=== PATIENT | female | born 1980 | race Caucasian/White ===

== ENCOUNTER 2017-08-25 23:39 | Outpatient (CLI) | payer OTHER ==
[2017-08-26 02:51] LABS: ADD MAN DIFF? NO
[2017-08-26 02:58] LABS: BASOPHILS % 0.4 % (0.0-2.0); EOSINOPHILS # 0.2 10^3/ul (0.0-0.5); EOSINOPHILS % 1.6 % (0.0-7.0); HEMATOCRIT 32.8 % (37.0-47.0); LYMPHOCYTES # 2.5 10^3/ul (0.8-2.9); LYMPHOCYTES % 22.2 % (15.0-51.0); MEAN CORPUSCULAR HGB CONC 33.5 g/dl (32.0-37.0); MEAN CORPUSCULAR VOLUME 92.4 fl (82.0-101.0); MEAN PLATELET VOLUME 8.7 fl (7.4-10.4); MONOCYTE # 0.8 10^3/ul (0.3-0.9); MONOCYTES % 7.2 % (0.0-11.0); NEUTROPHIL # 7.8 10^3/ul (1.6-7.5); PLATELET COUNT 313 10^3/UL (140-415); RED BLOOD COUNT 3.55 10^6/ul (4.20-5.40); RED CELL DISTRIBUTION WIDTH 13.2 % (11.5-14.5)
[2017-08-26 02:58] LABS: WHITE BLOOD COUNT 11.4 10^3/ul (4.8-10.8)
[2017-08-26 04:49] LABS: AMPHETAMINE/METHAMPHETAMINE Negative (NEGATIVE); BARBITURATES Negative (NEGATIVE); BENZODIAZEPINES Negative (NEGATIVE); CANNABINOIDS Negative (NEGATIVE)
[2017-08-26 04:50] LABS: COCAINE Negative (NEGATIVE); OPIATES Negative (NEGATIVE)
[2017-08-26 05:47] LABS: ADD UMIC YES; UR ASCORBIC ACID NEGATIVE (NEGATIVE); UR BILIRUBIN (Dip) NEGATIVE (NEGATIVE); UR BLOOD (Dip) 2+ mg/dL (NEGATIVE); UR CALCIUM OXALATE CRYSTAL FEW /HPF (NONE SEEN); UR CLARITY SLIGHTLY CLOUDY (CLEAR); UR COLOR YELLOW (YELLOW); UR GLUCOSE (Dip) NEGATIVE (NEGATIVE); UR KETONES (Dip) NEGATIVE (NEGATIVE); UR LEUKOCYTE ESTERASE (Dip) NEGATIVE Leu/ul (NEGATIVE); UR MUCUS FEW /HPF (NONE SEEN); UR NITRITE (Dip) NEGATIVE (NEGATIVE); UR RBC 1 /HPF (0-5); UR SPECIFIC GRAVITY (Dip) 1.025 (1.003-1.030); UR SQUAMOUS EPITHELIAL CELL FEW /HPF (FEW); UR TOTAL PROTEIN (Dip) NEGATIVE (NEGATIVE); UR UROBILINOGEN (Dip) NEGATIVE (NEGATIVE); UR WBC 3 /HPF (0-5)
== END 2017-08-26 06:00 | disposition home or self-care (01) ==
LOC: OBT 23:39 → L-D 23:59 → OBT 08-26 06:00
DX: O46.8X2 Other antepartum hemorrhage, second trimester (principal); Z3A.28 28 weeks gestation of pregnancy
CPT/HCPCS: 76818; 80307; 81001; 85025; 86850; 86900; 86901; 87086

== ENCOUNTER 2017-11-09 07:39 | Inpatient (IN) | payer OTHER ==
[2017-11-09 08:30] LABS: ADD MAN DIFF? NO
[2017-11-09] MEDS ORDERED: CARBOPROST 250 MCG INJ IM ×2 (08:30→10:30)
[2017-11-09] MEDS ORDERED: METHYLERGONOVINE 0.2 MG INJ IM ×2 (08:30→10:30)
[2017-11-09] MEDS ORDERED: MISOPROSTOL 200 MCG TAB PR ×2 (08:30→10:30)
[2017-11-09] MEDS ORDERED: CEFAZOLIN 2 GM/50 ML (PMX) 50 ML IV ×2 (08:30→10:30)
[2017-11-09] MEDS ORDERED: OXYTOCIN 30 UNITS/LR 500 ML IV (08:30)
[2017-11-09 08:32] LABS: BASOPHILS % 0.5 % (0.0-2.0); EOSINOPHILS # 0.1 10^3/ul (0.0-0.5); EOSINOPHILS % 1.3 % (0.0-7.0); HEMATOCRIT 36.6 % (37.0-47.0); HEMOGLOBIN 12.1 g/dl (12.0-16.0); LYMPHOCYTES # 2.3 10^3/ul (0.8-2.9); LYMPHOCYTES % 26.6 % (15.0-51.0); MEAN CORPUSCULAR HEMOGLOBIN 30.3 pg (29.0-33.0); MEAN CORPUSCULAR HGB CONC 33.1 g/dl (32.0-37.0); MEAN CORPUSCULAR VOLUME 91.7 fl (82.0-101.0); MEAN PLATELET VOLUME 9.2 fl (7.4-10.4); MONOCYTE # 0.7 10^3/ul (0.3-0.9); MONOCYTES % 7.8 % (0.0-11.0); NEUTROPHIL # 5.4 10^3/ul (1.6-7.5); NEUTROPHILS % 63.4 % (39.0-77.0); PLATELET COUNT 267 10^3/UL (140-415); RED BLOOD COUNT 3.99 10^6/ul (4.20-5.40); RED CELL DISTRIBUTION WIDTH 13.9 % (11.5-14.5)
[2017-11-09 08:32] LABS: WHITE BLOOD COUNT 8.6 10^3/ul (4.8-10.8)
[2017-11-09] MEDS: LACTATED RINGER'S 1,000 ML IV ×2 (08:36→08:53)
[2017-11-09] MEDS: CITRIC ACID/SODIUM CITRATE 15 ML CUP PO (08:52)
[2017-11-09] MEDS: ONDANSETRON 4 MG INJ IV (08:53)
[2017-11-09 08:58] LABS: INR 0.93; PROTIME 12.6 Sec (11.9-14.9)
[2017-11-09 08:59] LABS: PARTIAL THROMBOPLASTIN TIME 23.6 Sec (25.0-35.0)
[2017-11-09] MEDS ORDERED: KETOROLAC 30 MG INJ (09:19)
[2017-11-09] MEDS ORDERED: BUPIVACAINE 0.75%/DEXT (SPINAL) 2 ML INJ (09:19)
[2017-11-09] MEDS ORDERED: OXYTOCIN 10 UNIT INJ (09:19)
[2017-11-09] MEDS ORDERED: DEXAMETHASONE 4 MG/ML 1 ML INJ (09:19)
[2017-11-09] MEDS ORDERED: morphine SULFATE/PF (10 MG/10 ML) INJ (09:19)
[2017-11-09] MEDS ORDERED: METOCLOPRAMIDE 10 MG INJ (09:19)
[2017-11-09] MEDS ORDERED: PHENYLephrine (100 MCG/ML) 5ML SYG ×2 (09:19→09:56)
[2017-11-09] MEDS ORDERED: MEPERIDINE 100 MG INJ (09:44)
[2017-11-09] MEDS ORDERED: DIPHENHYDRAMINE 50 MG INJ IV (10:30)
[2017-11-09] MEDS ORDERED: morphine 2 MG INJ IV ×2 (10:30)
[2017-11-09] MEDS: OXYTOCIN 30 UNITS/LR 500 ML IV ×3 (10:30→21:48)
[2017-11-09] MEDS ORDERED: NALBUPHINE HCL (10 MG/1 ML) INJ IV (10:30)
[2017-11-09] MEDS ORDERED: ONDANSETRON 4 MG INJ IV (10:30)
[2017-11-09] MEDS ORDERED: NALOXONE (0.4 MG/ML) INJ IV (10:30)
[2017-11-09] MEDS ORDERED: HYDROmorphONE 0.5 MG/0.5 ML SYG IV ×2 (10:30)
[2017-11-09] MEDS ORDERED: OXYCODONE/ACETAMINOPHEN (5/325) TAB PO (10:30)
[2017-11-09] MEDS ORDERED: HYDROCODONE/APAP (5/325) TAB PO (10:30)
[2017-11-09] MEDS ORDERED: HETASTARCH 6% NACL 500 ML (11:47)
[2017-11-09] MEDS ORDERED: IBUPROFEN 600 MG TAB PO (12:00)
[2017-11-09] MEDS: HETASTARCH 6% NACL 500 ML BAG IV* (12:05)
[2017-11-09 12:28] LABS: HEPATITIS B SURFACE ANTIGEN NEGATIVE (NEGATIVE)
[2017-11-09 15:11] LABS: RAPID PLASMA REAGIN NONREACTIVE (NR)
[2017-11-09] MEDS: CEFAZOLIN 2 GM/50 ML (PMX) 50 ML IVPB (16:15)
[2017-11-09] MEDS: SENNA/DOCUSATE NA (8.6MG/50MG) TAB PO (21:00)
[2017-11-10] MEDS: CEFAZOLIN 2 GM/50 ML (PMX) 50 ML IVPB ×2 (01:04→09:11)
[2017-11-10] MEDS: LACTATED RINGER'S 1,000 ML IV* (04:13)
[2017-11-10] MEDS: KETOROLAC 30 MG INJ IV (06:10)
[2017-11-10] MEDS: SENNA/DOCUSATE NA (8.6MG/50MG) TAB PO ×2 (09:11→21:07)
[2017-11-10 10:08] LABS: ADD MAN DIFF? NO
[2017-11-10 10:16] LABS: BASOPHILS % 0.3 % (0.0-2.0); EOSINOPHILS # 0.1 10^3/ul (0.0-0.5); HEMATOCRIT 28.7 % (37.0-47.0); HEMOGLOBIN 9.7 g/dl (12.0-16.0); LYMPHOCYTES # 2.2 10^3/ul (0.8-2.9); LYMPHOCYTES % 20.2 % (15.0-51.0); MEAN CORPUSCULAR HEMOGLOBIN 31.3 pg (29.0-33.0); MEAN CORPUSCULAR HGB CONC 33.8 g/dl (32.0-37.0); MEAN CORPUSCULAR VOLUME 92.6 fl (82.0-101.0); MEAN PLATELET VOLUME 9.1 fl (7.4-10.4); MONOCYTE # 0.8 10^3/ul (0.3-0.9); MONOCYTES % 7.8 % (0.0-11.0); NEUTROPHIL # 7.6 10^3/ul (1.6-7.5); NEUTROPHILS % 70.2 % (39.0-77.0); PLATELET COUNT 215 10^3/UL (140-415); RED CELL DISTRIBUTION WIDTH 13.9 % (11.5-14.5)
[2017-11-10 10:16] LABS: WHITE BLOOD COUNT 10.8 10^3/ul (4.8-10.8)
[2017-11-10] MEDS: IBUPROFEN 600 MG TAB PO ×3 (11:52→23:24)
[2017-11-10] MEDS: FERROUS SULFATE (EC) 325 MG TAB PO (21:07)
[2017-11-10] MEDS: ACETAMINOPHEN 500 MG TAB PO (21:08)
[2017-11-11] MEDS: IBUPROFEN 600 MG TAB PO ×3 (06:43→17:38)
[2017-11-11] MEDS: SENNA/DOCUSATE NA (8.6MG/50MG) TAB PO ×2 (09:12→21:59)
[2017-11-11] MEDS: FERROUS SULFATE (EC) 325 MG TAB PO ×2 (09:12→21:59)
[2017-11-11] MEDS: LANOLIN 7 GM TUBE TOP (10:37)
[2017-11-11] MEDS: OXYCODONE/ACETAMINOPHEN (5/325) TAB PO (15:16)
[2017-11-12] MEDS: IBUPROFEN 600 MG TAB PO ×3 (00:22→11:28)
[2017-11-12] MEDS: FERROUS SULFATE (EC) 325 MG TAB PO (08:29)
[2017-11-12] MEDS: SENNA/DOCUSATE NA (8.6MG/50MG) TAB PO (08:29)
[2017-11-12] MEDS: OXYCODONE/ACETAMINOPHEN (5/325) TAB PO (08:30)
[2017-11-12] MEDS: LANOLIN 7 GM TUBE TOP (11:28)
== END 2017-11-12 15:15 | disposition home or self-care (01) | DRG 766 ==
LOC: OBT 07:39 → L-D 07:44 → OBT 08:23 → L-D 08:27 → PP1 14:10
PROVIDERS: Obstetrics & Gynecology
PROC: 10D00Z1 Extraction of Products of Conception, Low, Open Approach (ICD-10-PCS; principal; 2017-11-09 09:45)
PROC: 4A1HXCZ Monitoring of Products of Conception, Cardiac Rate, External Approach (ICD-10-PCS; 2017-11-09 09:45)
DX: O34.211 Maternal care for low transverse scar from previous cesarean delivery (principal); Z3A.38 38 weeks gestation of pregnancy; Z37.0 Single live birth
CPT/HCPCS: 85025; 85610; 85730; 86592; 86850; 86900; 86901; 87340; 99464

== ENCOUNTER 2018-12-30 09:45 | Inpatient (IN) | payer OTHER ==
[2018-12-30 10:47] LABS: ADD MAN DIFF? NO
[2018-12-30 10:51] LABS: WHITE BLOOD COUNT 11.8 10^3/ul (4.8-10.8)
[2018-12-30 10:51] LABS: BASOPHILS % 0.3 % (0.0-2.0); EOSINOPHILS # 0.2 10^3/ul (0.0-0.5); EOSINOPHILS % 1.3 % (0.0-7.0); HEMATOCRIT 35.9 % (37.0-47.0); HEMOGLOBIN 11.9 g/dl (12.0-16.0); LYMPHOCYTES # 2.1 10^3/ul (0.8-2.9); LYMPHOCYTES % 17.6 % (15.0-51.0); MEAN CORPUSCULAR HGB CONC 33.1 g/dl (32.0-37.0); MEAN CORPUSCULAR VOLUME 93.5 fl (82.0-101.0); MONOCYTE # 0.8 10^3/ul (0.3-0.9); MONOCYTES % 6.3 % (0.0-11.0); NEUTROPHIL # 8.8 10^3/ul (1.6-7.5); RED BLOOD COUNT 3.84 10^6/ul (4.20-5.40); RED CELL DISTRIBUTION WIDTH 13.5 % (11.5-14.5)
[2018-12-30 10:53] LABS: POSITIVE DIFF @See below
[2018-12-30 11:52] LABS: ANISOCYTOSIS 1+ (0-0); BAND NEUTROPHILS #M 1.1 10^3/ul (0.0-0.6); BAND NEUTROPHILS % (M) 10 % (0-4); LYMPHOCYTES #M 1.8 10^3/ul (0.8-2.9); LYMPHOCYTES % (M) 16 % (15-51); MONOCYTE #M 0.8 10^3/ul (0.3-0.9); MONOCYTES % (M) 7 % (0-11); PLATELET ESTIMATE NORMAL; PLATELET MORPHOLOGY COMMENT @See below; POIKILOCYTOSIS 1+ (0-0); REACTIVE LYMPHOCYTES #M 0.3 10^3/ul (0.0-0.0); REACTIVE LYMPHOCYTES% (M) 3 % (0-0); SEG NEUT #M 7.7 10^3/ul (1.6-7.5); SEGMENTED NEUTROPHILS (M) % 64 % (39-77); SMUDGE%M 15 % (0-0)
[2018-12-30 11:53] LABS: MEAN PLATELET VOLUME 9.5 fl (7.4-10.4); PLATELET COUNT 311 10^3/UL (140-415)
[2018-12-30 13:04] LABS: ADD UMIC NO; UR ASCORBIC ACID NEGATIVE (NEGATIVE); UR BACTERIA FEW /HPF (NONE SEEN); UR BILIRUBIN (Dip) NEGATIVE (NEGATIVE); UR BLOOD (Dip) NEGATIVE (NEGATIVE); UR CLARITY SLIGHTLY CLOUDY (CLEAR); UR COLOR YELLOW (YELLOW); UR GLUCOSE (Dip) NEGATIVE (NEGATIVE); UR KETONES (Dip) NEGATIVE (NEGATIVE); UR LEUKOCYTE ESTERASE (Dip) NEGATIVE Leu/ul (NEGATIVE); UR MUCUS FEW /HPF (NONE SEEN); UR NITRITE (Dip) NEGATIVE (NEGATIVE); UR RBC 0 /HPF (0-5); UR SPECIFIC GRAVITY (Dip) 1.016 (1.003-1.030); UR SQUAMOUS EPITHELIAL CELL FEW /HPF (FEW); UR TOTAL PROTEIN (Dip) NEGATIVE (NEGATIVE); UR UROBILINOGEN (Dip) 2+ mg/dL (NEGATIVE); UR WBC 2 /HPF (0-5)
[2018-12-30] MEDS: LACTATED RINGER'S 1,000 ML IV ×2 (17:15→20:57)
[2018-12-30 17:49] LABS: ADD MAN DIFF? NO
[2018-12-30 17:50] LABS: BASOPHILS % 0.4 % (0.0-2.0); EOSINOPHILS # 0.1 10^3/ul (0.0-0.5); EOSINOPHILS % 1.3 % (0.0-7.0); HEMATOCRIT 34.8 % (37.0-47.0); HEMOGLOBIN 11.8 g/dl (12.0-16.0); LYMPHOCYTES # 2.2 10^3/ul (0.8-2.9); LYMPHOCYTES % 21.5 % (15.0-51.0); MEAN CORPUSCULAR HEMOGLOBIN 31.2 pg (29.0-33.0); MEAN CORPUSCULAR HGB CONC 33.9 g/dl (32.0-37.0); MEAN CORPUSCULAR VOLUME 92.1 fl (82.0-101.0); MEAN PLATELET VOLUME 8.9 fl (7.4-10.4); MONOCYTE # 0.7 10^3/ul (0.3-0.9); MONOCYTES % 7.2 % (0.0-11.0); NEUTROPHILS % 69.2 % (39.0-77.0); PLATELET COUNT 338 10^3/UL (140-415); RED BLOOD COUNT 3.78 10^6/ul (4.20-5.40); RED CELL DISTRIBUTION WIDTH 13.4 % (11.5-14.5)
[2018-12-30 17:50] LABS: WHITE BLOOD COUNT 10.2 10^3/ul (4.8-10.8)
[2018-12-30 17:58] LABS: AMPHETAMINE/METHAMPHETAMINE Negative (NEGATIVE); BARBITURATES Negative (NEGATIVE); BENZODIAZEPINES Negative (NEGATIVE); CANNABINOIDS Negative (NEGATIVE); COCAINE Negative (NEGATIVE); OPIATES Negative (NEGATIVE)
[2018-12-30] MEDS: ACETAMINOPHEN 325 MG TAB PO (23:21)
[2018-12-31] MEDS: LACTATED RINGER'S 1,000 ML IV ×2 (04:46→13:10)
[2018-12-31] MEDS: ACETAMINOPHEN 325 MG TAB PO (10:30)
== END 2018-12-31 18:40 | DRG 833 ==
LOC: OBT 09:45 → L-D 09:45 → OBT 14:35 → L-D 14:35 → PP1 23:09
PROVIDERS: Obstetrics & Gynecology
DX: O60.02 Preterm labor without delivery, second trimester (principal); Z3A.26 26 weeks gestation of pregnancy
CPT/HCPCS: 76815; 76817; 80307; 81001; 81003; 85025; 86850; 86900; 86901; 87086

== ENCOUNTER 2019-03-06 23:34 | Outpatient (CLI) | payer OTHER ==
[2019-03-07] MEDS: LACTATED RINGER'S 1,000 ML IV ×2 (00:39→01:45)
[2019-03-07] MEDS: FAMOTIDINE 20 MG INJ IV (00:44)
[2019-03-07] MEDS: ONDANSETRON 4 MG INJ IV (00:44)
[2019-03-07 00:45] LABS: ADD MAN DIFF? NO
[2019-03-07 00:49] LABS: WHITE BLOOD COUNT 13.3 10^3/ul (4.8-10.8)
[2019-03-07 00:49] LABS: BASOPHILS % 0.2 % (0.0-2.0); EOSINOPHILS % 0.2 % (0.0-7.0); HEMATOCRIT 35.7 % (37.0-47.0); LYMPHOCYTES # 1.1 10^3/ul (0.8-2.9); LYMPHOCYTES % 8.3 % (15.0-51.0); MEAN CORPUSCULAR HEMOGLOBIN 30.4 pg (29.0-33.0); MEAN CORPUSCULAR HGB CONC 33.6 g/dl (32.0-37.0); MEAN CORPUSCULAR VOLUME 90.4 fl (82.0-101.0); MEAN PLATELET VOLUME 9.2 fl (7.4-10.4); MONOCYTE # 0.5 10^3/ul (0.3-0.9); MONOCYTES % 3.9 % (0.0-11.0); NEUTROPHIL # 11.5 10^3/ul (1.6-7.5); NEUTROPHILS % 86.6 % (39.0-77.0); PLATELET COUNT 267 10^3/UL (140-415); RED BLOOD COUNT 3.95 10^6/ul (4.20-5.40); RED CELL DISTRIBUTION WIDTH 13.4 % (11.5-14.5)
[2019-03-07 01:09] LABS: ALANINE AMINOTRANSFERASE 27 IU/L (13-69); ALBUMIN 3.3 g/dl (3.3-4.9); ALBUMIN/GLOBULIN RATIO 0.89; ALKALINE PHOSPHATASE 187 IU/L (42-121); ANION GAP 8 (5-13); ASPARTATE AMINO TRANSFERASE 25 IU/L (15-46); BILIRUBIN,INDIRECT 0.7 mg/dl (0-1.1); BILIRUBIN,TOTAL 0.7 mg/dl (0.2-1.3); BLOOD UREA NITROGEN 14 mg/dl (7-20); CALCIUM 8.8 mg/dl (8.4-10.2); CARBON DIOXIDE 21 mmol/L (21-31); CHLORIDE 106 mmol/L (97-110); CREATININE 0.68 mg/dl (0.44-1.00); Estimated GFR > 60 mL/min (>60); GLUCOSE 89 mg/dl (70-220); POTASSIUM 3.7 mmol/L (3.5-5.1); SODIUM 135 mmol/L (135-144)
[2019-03-07] MEDS ORDERED: TERBUTALINE 1 ML (02:05)
[2019-03-07] MEDS: TERBUTALINE 1 MG/ML INJ SC ×2 (02:10→03:10)
[2019-03-07 04:06] LABS: ADD UMIC YES; UR ASCORBIC ACID NEGATIVE (NEGATIVE); UR BACTERIA FEW /HPF (NONE SEEN); UR BILIRUBIN (Dip) NEGATIVE (NEGATIVE); UR BLOOD (Dip) NEGATIVE (NEGATIVE); UR CLARITY SLIGHTLY CLOUDY (CLEAR); UR COLOR YELLOW (YELLOW); UR GLUCOSE (Dip) NEGATIVE (NEGATIVE); UR KETONES (Dip) 1+ mg/dL (NEGATIVE); UR LEUKOCYTE ESTERASE (Dip) NEGATIVE Leu/ul (NEGATIVE); UR MUCUS MODERATE /HPF (NONE SEEN); UR NITRITE (Dip) NEGATIVE (NEGATIVE); UR RBC 1 /HPF (0-5); UR SPECIFIC GRAVITY (Dip) 1.028 (1.003-1.030); UR SQUAMOUS EPITHELIAL CELL FEW /HPF (FEW); UR TOTAL PROTEIN (Dip) 1+ mg/dl (NEGATIVE); UR UROBILINOGEN (Dip) NEGATIVE (NEGATIVE); UR WBC 2 /HPF (0-5)
[2019-03-07] MEDS ORDERED: NIFEdipine 10 MG CAP (04:37)
[2019-03-07] MEDS: NIFEdipine 10 MG CAP PO (04:47)
== END 2019-03-07 07:07 | disposition home or self-care (01) ==
LOC: OBT 23:34 → L-D 23:34 → OBT 03-07 07:07
DX: O62.9 Abnormality of forces of labor, unspecified (principal); Z3A.35 35 weeks gestation of pregnancy
CPT/HCPCS: 36415; 76818; 80053; 81001; 85025; 96360; 96361; 96372

== ENCOUNTER 2019-04-03 07:33 | Inpatient (IN) | payer OTHER ==
[2019-04-03 07:57] LABS: ADD MAN DIFF? NO
[2019-04-03] MEDS ORDERED: METHYLERGONOVINE 0.2 MG INJ IM ×2 (08:00→10:30)
[2019-04-03] MEDS ORDERED: CARBOPROST 250 MCG INJ IM ×2 (08:00→10:30)
[2019-04-03] MEDS ORDERED: CEFAZOLIN 2 GM/50 ML (PMX) 50 ML IVPB (08:00)
[2019-04-03] MEDS ORDERED: MISOPROSTOL 200 MCG TAB PR ×2 (08:00→10:30)
[2019-04-03 08:01] LABS: WHITE BLOOD COUNT 8.8 10^3/ul (4.8-10.8)
[2019-04-03 08:01] LABS: BASOPHIL # 0.1 10^3/ul (0.0-0.1); BASOPHILS % 0.6 % (0.0-2.0); EOSINOPHILS # 0.1 10^3/ul (0.0-0.5); EOSINOPHILS % 1.4 % (0.0-7.0); HEMATOCRIT 37.5 % (37.0-47.0); HEMOGLOBIN 12.5 g/dl (12.0-16.0); LYMPHOCYTES # 2.8 10^3/ul (0.8-2.9); LYMPHOCYTES % 32.3 % (15.0-51.0); MEAN CORPUSCULAR HEMOGLOBIN 30.2 pg (29.0-33.0); MEAN CORPUSCULAR HGB CONC 33.3 g/dl (32.0-37.0); MEAN CORPUSCULAR VOLUME 90.6 fl (82.0-101.0); MEAN PLATELET VOLUME 9.7 fl (7.4-10.4); MONOCYTE # 0.7 10^3/ul (0.3-0.9); MONOCYTES % 7.7 % (0.0-11.0); NEUTROPHIL # 5.1 10^3/ul (1.6-7.5); NEUTROPHILS % 57.3 % (39.0-77.0); PLATELET COUNT 246 10^3/UL (140-415); RED BLOOD COUNT 4.14 10^6/ul (4.20-5.40)
[2019-04-03] MEDS: CITRIC ACID/NA CITRATE 30 ML CUP PO (08:22)
[2019-04-03] MEDS: LACTATED RINGER'S 1,000 ML IV ×2 (08:22→22:59)
[2019-04-03 08:26] LABS: INR 0.97
[2019-04-03 08:34] LABS: PARTIAL THROMBOPLASTIN TIME 24.5 Sec (23.0-35.0)
[2019-04-03] MEDS ORDERED: OXYTOCIN 30 UNITS/LR 500 ML IV ×2 (08:59→10:30)
[2019-04-03] MEDS ORDERED: KETOROLAC 30 MG INJ (08:59)
[2019-04-03] MEDS ORDERED: METOCLOPRAMIDE 10 MG INJ (08:59)
[2019-04-03] MEDS ORDERED: morphine SULFATE/PF (10 MG/10 ML) INJ (08:59)
[2019-04-03 09:06] LABS: HEPATITIS B SURFACE ANTIGEN NEGATIVE (NEGATIVE)
[2019-04-03] MEDS ORDERED: FENTAnyl 50 MCG/ML VIAL (09:42)
[2019-04-03] MEDS ORDERED: PHENYLephrine (100 MCG/ML) 10ML SYG (09:43)
[2019-04-03] MEDS ORDERED: ONDANSETRON 4 MG INJ (09:52)
[2019-04-03] MEDS: OXYTOCIN 30 UNITS/LR 500 ML IV ×3 (10:24→22:16)
[2019-04-03] MEDS ORDERED: NACL 0.9% 3 ML SYG IV (10:30)
[2019-04-03] MEDS ORDERED: NALOXONE (0.4 MG/ML) INJ IV (12:00)
[2019-04-03] MEDS ORDERED: morphine 2 MG INJ IV ×6 (12:00)
[2019-04-03] MEDS ORDERED: KETOROLAC 30 MG INJ IV (12:00)
[2019-04-03] MEDS ORDERED: DIPHENHYDRAMINE 50 MG INJ IV ×2 (12:00)
[2019-04-03] MEDS ORDERED: ONDANSETRON 4 MG INJ IV (12:00)
[2019-04-03] MEDS: ONDANSETRON 4 MG INJ IV (13:11)
[2019-04-03] MEDS: CEFAZOLIN 2 GM/50 ML (PMX) 50 ML IVPB ×2 (14:37→22:59)
[2019-04-03] MEDS: KETOROLAC 30 MG INJ IV ×2 (15:36→21:16)
[2019-04-03 16:08] LABS: ADD MAN DIFF? NO
[2019-04-03 16:09] LABS: WHITE BLOOD COUNT 15.8 10^3/ul (4.8-10.8)
[2019-04-03 16:09] LABS: BASOPHIL # 0.1 10^3/ul (0.0-0.1); BASOPHILS % 0.3 % (0.0-2.0); EOSINOPHILS % 0.2 % (0.0-7.0); HEMATOCRIT 35.8 % (37.0-47.0); LYMPHOCYTES # 2.4 10^3/ul (0.8-2.9); LYMPHOCYTES % 15.5 % (15.0-51.0); MEAN CORPUSCULAR HEMOGLOBIN 30.5 pg (29.0-33.0); MEAN CORPUSCULAR HGB CONC 33.5 g/dl (32.0-37.0); MEAN CORPUSCULAR VOLUME 91.1 fl (82.0-101.0); MONOCYTES % 6.3 % (0.0-11.0); NEUTROPHIL # 12.2 10^3/ul (1.6-7.5); NEUTROPHILS % 77.2 % (39.0-77.0); PLATELET COUNT 245 10^3/UL (140-415); RED BLOOD COUNT 3.93 10^6/ul (4.20-5.40); RED CELL DISTRIBUTION WIDTH 13.5 % (11.5-14.5)
[2019-04-03 16:26] LABS: ALANINE AMINOTRANSFERASE 29 IU/L (13-69); ALBUMIN 2.6 g/dl (3.3-4.9); ALBUMIN/GLOBULIN RATIO 0.81; ALKALINE PHOSPHATASE 203 IU/L (42-121); ANION GAP 4 (5-13); ASPARTATE AMINO TRANSFERASE 26 IU/L (15-46); BILIRUBIN,INDIRECT 0.3 mg/dl (0-1.1); BILIRUBIN,TOTAL 0.3 mg/dl (0.2-1.3); BLOOD UREA NITROGEN 14 mg/dl (7-20); CALCIUM 8.4 mg/dl (8.4-10.2); CARBON DIOXIDE 22 mmol/L (21-31); CHLORIDE 109 mmol/L (97-110); Estimated GFR > 60 mL/min (>60); GLUCOSE 84 mg/dl (70-220); POTASSIUM 3.9 mmol/L (3.5-5.1); SODIUM 135 mmol/L (135-144); TOTAL PROTEIN 5.8 g/dl (6.1-8.1)
[2019-04-03 16:37] LABS: TROPONIN-I < 0.012 ng/ml (0.000-0.120)
[2019-04-03 16:49] LABS: RAPID PLASMA REAGIN NONREACTIVE (NR)
[2019-04-03] MEDS: SOD CHLORIDE 0.9% 500 ML IV (16:53)
[2019-04-03 17:10] LABS: INR 0.98; PROTIME 13.1 Sec (11.9-14.9)
[2019-04-03 17:11] LABS: PARTIAL THROMBOPLASTIN TIME 25.5 Sec (23.0-35.0)
[2019-04-04] MEDS: KETOROLAC 30 MG INJ IV ×2 (02:42→10:03)
[2019-04-04] MEDS: CEFAZOLIN 2 GM/50 ML (PMX) 50 ML IVPB (05:04)
[2019-04-04 05:52] LABS: ADD MAN DIFF? NO
[2019-04-04 05:56] LABS: WHITE BLOOD COUNT 12.6 10^3/ul (4.8-10.8)
[2019-04-04 05:56] LABS: BASOPHILS % 0.3 % (0.0-2.0); EOSINOPHILS % 0.2 % (0.0-7.0); HEMATOCRIT 31.1 % (37.0-47.0); HEMOGLOBIN 10.4 g/dl (12.0-16.0); LYMPHOCYTES # 2.6 10^3/ul (0.8-2.9); LYMPHOCYTES % 20.3 % (15.0-51.0); MEAN CORPUSCULAR HEMOGLOBIN 30.8 pg (29.0-33.0); MEAN CORPUSCULAR HGB CONC 33.4 g/dl (32.0-37.0); MEAN PLATELET VOLUME 10.2 fl (7.4-10.4); MONOCYTE # 0.7 10^3/ul (0.3-0.9); MONOCYTES % 5.6 % (0.0-11.0); NEUTROPHIL # 9.2 10^3/ul (1.6-7.5); PLATELET COUNT 222 10^3/UL (140-415); RED BLOOD COUNT 3.38 10^6/ul (4.20-5.40); RED CELL DISTRIBUTION WIDTH 13.8 % (11.5-14.5)
[2019-04-04] MEDS: LACTATED RINGER'S 1,000 ML IV ×3 (07:42→19:03)
[2019-04-04] MEDS: IBUPROFEN 600 MG TAB PO ×2 (12:46→17:34)
[2019-04-04 19:28] LABS: ALBUMIN 2.4 g/dl (3.3-4.9); ANION GAP 2 (5-13); BLOOD UREA NITROGEN 14 mg/dl (7-20); CALCIUM 7.6 mg/dl (8.4-10.2); CARBON DIOXIDE 26 mmol/L (21-31); CHLORIDE 108 mmol/L (97-110); CREATININE 0.95 mg/dl (0.44-1.00); GLUCOSE 89 mg/dl (70-220); MAGNESIUM 1.9 mg/dl (1.7-2.5); PHOSPHORUS 3.1 mg/dl (2.5-4.9); SODIUM 136 mmol/L (135-144)
[2019-04-04] MEDS: OXYCODONE/ACETAMINOPHEN (5/325) TAB PO ×2 (19:42→20:48)
[2019-04-04] MEDS: FERROUS SULFATE (EC) 325 MG TAB PO (20:49)
[2019-04-05] MEDS: IBUPROFEN 600 MG TAB PO ×5 (00:44→23:50)
[2019-04-05] MEDS: OXYCODONE/ACETAMINOPHEN (5/325) TAB PO ×4 (03:10→22:16)
[2019-04-05] MEDS: FERROUS SULFATE (EC) 325 MG TAB PO ×2 (08:35→20:36)
[2019-04-05] MEDS: BISACODYL (EC) 5 MG TAB PO (20:36)
[2019-04-05] MEDS: SENNA TAB PO (20:36)
[2019-04-06] MEDS: OXYCODONE/ACETAMINOPHEN (5/325) TAB PO ×3 (03:47→20:14)
[2019-04-06] MEDS: IBUPROFEN 600 MG TAB PO ×4 (05:34→23:55)
[2019-04-06] MEDS: LANOLIN HPA 1 PKT TOP (08:57)
[2019-04-06] MEDS: FERROUS SULFATE (EC) 325 MG TAB PO ×2 (08:58→12:27)
[2019-04-06] MEDS: SENNA TAB PO ×2 (08:58→12:27)
[2019-04-06] MEDS ORDERED: BISACODYL 10 MG SUPP PR (17:00)
[2019-04-07] MEDS: OXYCODONE/ACETAMINOPHEN (5/325) TAB PO ×5 (03:15→21:09)
[2019-04-07] MEDS: IBUPROFEN 600 MG TAB PO ×3 (05:48→17:47)
[2019-04-07 08:28] LABS: ADD MAN DIFF? NO
[2019-04-07 08:30] LABS: BASOPHILS % 0.2 % (0.0-2.0); EOSINOPHILS # 0.2 10^3/ul (0.0-0.5); EOSINOPHILS % 2.2 % (0.0-7.0); HEMATOCRIT 32.9 % (37.0-47.0); HEMOGLOBIN 10.7 g/dl (12.0-16.0); LYMPHOCYTES # 2.4 10^3/ul (0.8-2.9); LYMPHOCYTES % 27.4 % (15.0-51.0); MEAN CORPUSCULAR HEMOGLOBIN 30.2 pg (29.0-33.0); MEAN CORPUSCULAR HGB CONC 32.5 g/dl (32.0-37.0); MEAN CORPUSCULAR VOLUME 92.9 fl (82.0-101.0); MEAN PLATELET VOLUME 8.9 fl (7.4-10.4); MONOCYTE # 0.6 10^3/ul (0.3-0.9); NEUTROPHIL # 5.5 10^3/ul (1.6-7.5); NEUTROPHILS % 62.9 % (39.0-77.0); PLATELET COUNT 320 10^3/UL (140-415); RED BLOOD COUNT 3.54 10^6/ul (4.20-5.40)
[2019-04-07 08:30] LABS: WHITE BLOOD COUNT 8.8 10^3/ul (4.8-10.8)
[2019-04-07] MEDS: FERROUS SULFATE (EC) 325 MG TAB PO ×2 (08:48→21:09)
[2019-04-07] MEDS: SENNA TAB PO ×2 (08:48→21:09)
[2019-04-07] MEDS: BISACODYL (EC) 5 MG TAB PO (13:58)
[2019-04-08] MEDS: IBUPROFEN 600 MG TAB PO
== END 2019-04-08 00:35 | disposition home or self-care (01) | DRG 784 ==
LOC: L-D 07:33 → PP1 04-05 15:10 → L-D 09:19 → PP1 12:45 → 6WM 15:45
PROVIDERS: Obstetrics & Gynecology
PROC: 10D00Z1 Extraction of Products of Conception, Low, Open Approach (ICD-10-PCS; principal; 2019-04-03 10:30)
PROC: 0UT70ZZ Resection of Bilateral Fallopian Tubes, Open Approach (ICD-10-PCS; 2019-04-03 10:30)
DX: O65.5 Obstructed labor due to abnormality of maternal pelvic organs (principal); D62 Acute posthemorrhagic anemia; O34.211 Maternal care for low transverse scar from previous cesarean delivery; Z30.2 Encounter for sterilization; O99.89 Other specified diseases and conditions complicating pregnancy, childbirth and the puerperium; R00.1 Bradycardia, unspecified; O90.81 Anemia of the puerperium; Z3A.39 39 weeks gestation of pregnancy; Z37.0 Single live birth
CPT/HCPCS: 70450; 70551; 72141; 80053; 80069; 82962; 83735; 84443; 84484; 85025; 85384; 85610; 85730; 86592; 86850; 86900; 86901; 87340; 88302; 93005; 99464